=== PATIENT | female | born 1975 | race Caucasian/White ===

== ENCOUNTER 2017-04-13 17:18 | Inpatient (IN) | payer OTHER ==
[~2017-04-13] VITALS: Ht 162.6 cm; Wt 107.5 kg
--- NOTE | 2017-04-13 17:29 | NUR ---
PT INST ON CLEAN CATCH URINE, AMBULATORY TO BED T2B, RAMOS EMT AT BEDSIDE FOR EKG
--- NOTE | 2017-04-13 17:41 | NUR ---
DR GREENBERG AT BEDSIDE FOR MSE
[2017-04-13 18:07] LABS: BASOPHIL % 0.5 % (0-2); PLATELET COUNT 294 x10^3mcL (130-400); RED CELL DISTRIBUTION WIDTH 14.3 % (11.5-14.5)
[2017-04-13 18:27] LABS: CALCIUM 9.6 mg/dL (8.5-10.1); CARBON DIOXIDE 27.4 mmol/L (21-32); CHLORIDE SERUM 100 mmol/L (98-107); CREATININE SERUM 0.6 mg/dL (0.6-1.0); GFR1 > 60 mL/min; GLUCOSE SERUM 147 mg/dL (74-106); POTASSIUM SERUM 3.9 mmol/L (3.5-5.1); SODIUM SERUM 137 mmol/L (136-145)
[2017-04-13 18:32] LABS: ALBUMIN 3.9 g/dL (3.4-5.0); ALKALINE PHOSPHATASE 86 U/L (46-116); ALT/SGPT 25 U/L (14-59); AST/SGOT 19 U/L (15-37); BILIRUBIN TOTAL 0.2 mg/dL (0.20-1.00)
[2017-04-13 18:36] LABS: TOTAL PROTEIN, SERUM 8.5 g/dL (6.4-8.2)
--- NOTE | 2017-04-13 18:56 | NUR ---
DR GREENBERG AT BEDSIDE FOR RE EVAL
--- NOTE | 2017-04-13 19:02 | NUR ---
REPORT GIVEN TO Sylvester UMANZOR RN
[2017-04-13] MEDS ORDERED: ZESTRIL20 MG (19:40)
[2017-04-13] MEDS ORDERED: GOOD SENSE ASPI81 M3 (19:40)
[2017-04-13] MEDS ORDERED: HYDROCHLOROTHIA25 MG (19:40)
--- NOTE | 2017-04-13 20:08 | NUR ---
ADMITTING REPORT CALLED TO ARIANNE MELVIN.
--- NOTE | 2017-04-13 20:15 | NUR ---
PT TRANSFERRED VIA [facility] TO [facility] FLOOR ACCOMPANIED BY ADALID MELVIN AND WESLY FRIEDMAN. PT AAOX4, RESPS EVEN AND UNLABORED, PT DENIES ANY CP, SKIN WARM AND DRY. NO S/S DISTRESS NOTED. PT ALSO ACCOMPANIED BY SPOUSE.
--- NOTE | 2017-04-13 20:22 | NUR ---
REC'D PT FROM ER VIA BALJINDER. PT IS AAOX4. C/O 01/11 HEADACHE. TELE #29 ST HI=[id number]. DENIES CP. RESP EVEN AND UNLABORED. NO SOB NOTED. IV NOTED TO RAC. INTACT AND PATENT. ORIENTED PT TO CALL LIGHT. BED IN LOWEST POSITION. WILL ENDORSE TO PRIMARY RN.
--- NOTE | 2017-04-13 20:30 | NUR ---
REC'D REPORT FROM STAR MELVIN. FAMILY AT BEDSIDE. PT AAOX4, [place]EN[place] SPEAKING. FOLLOWS COMMANDS. NO SIGNS OF DISTRESS NOTED. BREATHING EVEN/UNLABORED ON RA. TELE 29, ST. DENIES CP, DIZZINESS, OR PALPITATIONS. ONLY C/O BALBUENA 01/11. WILL GIVE TYLENOL PER ORDER. NO EDEMA NOTED. DENIES ABD PAIN, TENDERNESS, OR N/V. VOIDING FREELY. AMBULATORY. SKIN INTACT. IV TO RAC PATENT AND INFUSING NS @ 100 ML/HR, SITE WNL. CALL LIGHT WITHIN REACH, BED AT LOWEST POSITION. ORIENTED TO DEVICES AND SURROUNDINGS. DR. RICHARD IN TO SEE PT. WILL CONTINUE TO MONITOR.
[2017-04-13 20:33] VITALS: BP 149/77
[2017-04-13 20:53] LABS: MAGNESIUM 2.1 mg/dL (1.8-2.4)
[2017-04-13 20:54] LABS: CHOLESTEROL/HDL RATIO 4.6
[2017-04-13 21:02] LABS: T3 TOTAL 1.39 ng/mL
[2017-04-13 21:03] LABS: FREE T4 1.08 ng/dL (0.76-1.46); FREE THYROXINE INDEX 2.8 ug/dL (1.4-4.5); T4(THYROXINE) 8.8 ug/dL (4.7-13.3)
--- NOTE | 2017-04-13 21:41 | NUR ---
TYLENOL GIVEN FOR BALBUENA. WILL MONITOR FOR RELIEF.
[2017-04-14 05:16] VITALS: BP 140/75
--- NOTE | 2017-04-14 05:26 | NUR ---
PT RESTING IN BED WATCHING TV. NO SIGNS OF DISTRESS NOTED. BREATHING EVEN/UNLABORED ON RA. NO COMPLAINTS AT THIS TIME. DENIES BALBUENA OR CP. UA COLLECTED. CALL LIGHT WITHIN REACH, BED AT LOWEST POSITION. WILL ENDORSE TO DAY NURSE.
[2017-04-14 06:16] LABS: microscopic required? NO
[2017-04-14 07:03] LABS: urine erythrocyte NEGATIVE (NEGATIVE)
[2017-04-14 07:13] LABS: AMPHETAMINE QUAL UR NONE DETECTED (NEG <=1000)
[2017-04-14 07:26] LABS: BASOPHIL % 0.5 % (0-2); PLATELET COUNT 267 x10^3mcL (130-400)
[2017-04-14 07:27] LABS: RED CELL DISTRIBUTION WIDTH 14.6 % (11.5-14.5)
[2017-04-14 07:35] LABS: CALCIUM 8.9 mg/dL (8.5-10.1); CARBON DIOXIDE 31.5 mmol/L (21-32); CHLORIDE SERUM 101 mmol/L (98-107); CREATININE SERUM 0.5 mg/dL (0.6-1.0); GFR1 > 60 mL/min; GLUCOSE SERUM 115 mg/dL (74-106); SODIUM SERUM 139 mmol/L (136-145)
--- NOTE | 2017-04-14 07:56 | NUR ---
AT 0710 - RECEIVED PATIENT FROM NIGHT NURSE. AWAKE, ALERT AND ORIENTED. MONITOR SHOWING SINUS RHYHTM. RATE 87. NO ECTOPIES. DENIES ANY CHEST PAIN. IV INFUSING NS AT 100ML/HR. AMBULATORY IN ROOM.
[2017-04-14 09:13] VITALS: BP 174/79
[2017-04-14 10:09] VITALS: BP 157/84
--- NOTE | 2017-04-14 10:54 | NUR ---
C/O HEADACHE AND GIVEN TYLANOL PER EMAR.
--- NOTE | 2017-04-14 11:53 | NUR ---
SEEN BY DR TORRES DURING MORNING ROUNDS. DR BROWN, DR TAVERAS, TIGRE LORA AND MYSELF PRIMARY NURSE ALSO PRESENT. DR TORRES SPOKE WITH PATIENT IN [place], ABOUT TEST RESULTS AND CURRENT PLAN OF CARE.
[2017-04-14 12:10] VITALS: BP 164/78
--- NOTE | 2017-04-14 12:51 | NUR ---
REPORTS THAT HEADACHE HAS RESOLVED.
[2017-04-14 17:09] VITALS: BP 142/77
--- NOTE | 2017-04-14 18:21 | NUR ---
NO FURTHER C/O HEADACHE. MONITOR SHOWING SINUS RHYTHM; DENIES ANY CHEST PAIN. BP IN BETTER RANGE THIS PM. LAST READING 142/77. IV INFUSING NS AT 100 ML/HR. AMBULATING TO BATHROOM FOR TOILET NEEDS. TOLERATING A CARDIAC DIET. WILL ENDORSE CARE TO NIGHT NURSE.
--- NOTE | 2017-04-14 19:30 | NUR ---
REC'D PT FROM DAY NURSE. AT BEDSIDE. AAOX4, SPEECH CLEAR, FOLLOWS COMMANDS. NO SIGNS OF DISTRESS NOTED. BREATHING EVEN/UNLABORED ON RA. TELE 29. DENIES CP, DIZZINESS, OR PALPITATIONS. NO EDEMA NOTED. DENIES ABD PAIN, TENDERNESS, OR N/V. VOIDING FREELY. AMBULATORY. SKIN INTACT. DENIES PAIN OR DISCOMFORT AT THIS TIME. IV TO RAC PATENT AND INFUSING, SITE WNL. CALL LIGHT WITHIN EACH, BED AT LOWEST POSITION. WILL CONTINUE TO MONITOR.
[2017-04-14 21:17] VITALS: BP 150/74
--- NOTE | 2017-04-14 21:23 | NUR ---
PT C/O BALBUENA 11/11 TO THE BACK OF HER HEAD. TYLENOL GIVEN PER ORDER. WILL MONITOR FOR RELIEF.
--- NOTE | 2017-04-15 00:06 | NUR ---
PT RESTING IN BED WITH EYES CLOSED. LAYING ON L SIDE. NO SIGNS OF DISTRESS NOTED. BREATHING EVEN/UNLABORED ON RA. CALL LIGHT WITHIN REACH, BED AT LOWEST POSITION. WILL CONTINUE TO MONITOR.
[2017-04-15 05:39] VITALS: BP 124/69
--- NOTE | 2017-04-15 05:53 | NUR ---
PT RESTING IN BED WITH EYES CLOSED. AWAKENS EASILY. REPORTS MILD BALBUENA TO BACK OF THE HEAD. TOLERABLE AT THIS TIME. DENIED TYLENOL. DENIES CP. BS 109, NO COVERAGE. NO SIGNIFICANT CHANGES DURING SHIFT. CALL LIGHT WITHIN REACH, BED AT LOWEST POSITION. WILL ENDORSE TO DAY NURSE.
--- NOTE | 2017-04-15 08:04 | NUR ---
AAO TIMES 4. TELE # 29 SR. LUNGS CTA. NO SOB. O2 SAT ON RA 99%. BS'S ACTIVE TIMES 4. PERIPHERAL PULSES PALPABLE. NO EDEMA. SCD BLE. PLEASANT. COOPERATIVE. NO C/O PAIN. IV SITE RAC PATENT, CDI.
[2017-04-15 09:25] VITALS: BP 151/85
[2017-04-15] MEDS ORDERED: GOOD SENSE OMEP20 MG PO (10:48)
[2017-04-15 12:51] VITALS: BP 151/85
--- NOTE | 2017-04-15 12:59 | NUR ---
DR SHARMA AWARE OF PT'S BLOOD PRESSURE TRENDSM SHE WILL FOLLOW UP WITH HER PRIMARY MD.
--- NOTE | 2017-04-15 13:24 | NUR ---
DC'D SL ANGIO INTACT. GAVE PT DISCHARGE INSTRUCTIONS, NEW PRESCRIPTION WAS SUCCESSFULLY SENT TO DESIGNATED PHARMACY. PT VERBALIZED "I UNDERSTAND" TO ALL INSTRUCTION. PT LEFT WITH TO GO HOME.
== END 2017-04-15 13:25 | disposition home or self-care (01) | DRG 206 ==
LOC: ED 17:18 → DU 19:36
PROVIDERS: Emergency Medicine; ADMIT Student in an Organized Health Care Education/Training Program
DX: M94.0 Chondrocostal junction syndrome [Tietze] (principal); I10 Essential (primary) hypertension; E78.5 Hyperlipidemia, unspecified; Z82.49 Family history of ischemic heart disease and other diseases of the circulatory system; Z83.3 Family history of diabetes mellitus; I16.0 Hypertensive urgency; R73.03 Prediabetes
CPT/HCPCS: 82962; 83880; 84439; 90658; J7030; Q0092